=== PATIENT | male | born 1990 | race Caucasian/White ===

== ENCOUNTER 2018-10-16 15:19 | Emergency (ER) | payer MEDICAID ==
[2018-10-16 15:38] VITALS: BP 115/68
--- NOTE | 2018-10-16 16:04 | UC ---
Head Injury HPI - HPI Summary HPI Summary: Pt of " something not right" with his vision in his left eye after slipping on ice on 10/13/18. Pt fell from standing height, broke fall with forearms as he hit the ground. Pt denies LOC denies fall secondary to drug or alcohol use. Pt denies HOLT. Has c/o abrasion to bridge of nose area and redness above right eye and small abrasion to left elbow. Pt denies loss of central vision or flashes of light. - History Of Current Complaint Chief Complaint: UCEye Stated Complaint: LEFT EYE COMP Time Seen by Provider: 10/16/18 15:48 Hx Obtained From: Patient Onset/Duration: Sudden Onset, Lasting Days, Still Present Severity Currently: Mild Severity Initially: Mild Pain Intensity: 0 Aggravating Factor(s): Nothing Alleviating Factor(s): Nothing Associated Signs And Symptoms: Positive: Negative - Risk Factors SDH Risk Factor: Male - Allergies/Home Medications Allergies/Adverse Reactions: Allergies Allergy/AdvReac Type Severity Reaction Status Date / Time No Known Allergies Allergy Verified 10/16/18 15:38 Home Medications: Home Medications Buprenorp/Nalox 8-2 MG SL TAB [Suboxone 8-2 mg SL TAB*] 1 tab.sl SL DAILY [History Confirmed 10/16/18] Gabapentin TAB(NF) [Neurontin 600 mg TAB(NF)] 600 mg PO TID 10/16/18 [History Confirmed 10/16/18] PMH/Surg Hx/FS Hx/Imm Hx Previously Healthy: Yes - Surgical History Surgical History: None - Family History Known Family History: Positive: Cardiac Disease - Social History Occupation: Works From/At Home Lives: With Family Alcohol Use: None Substance Use Type: None Substance Use Comment - Amount & Last Used: IV heroin - last year Smoking Status (MU): Heavy Every Day Tobacco Smoker Have You Smoked in the Last Year: Yes Review of Systems All Other Systems Reviewed And Are Negative: Yes Constitutional: Positive: Negative Skin: Positive: Negative Eyes: Positive: Blurred Vision - left eye ENT: Positive: Negative Respiratory: Positive: Negative Cardiovascular: Positive: Negative Gastrointestinal: Positive: Negative Genitourinary: Positive: Negative Motor: Positive: Negative Neurovascular: Positive: Negative Musculoskeletal: Positive: Negative Neurological: Positive: Negative Psychological: Positive: Negative Is Patient Immunocompromised?: No Physical Exam Triage Information Reviewed: Yes Appearance: Well-Appearing Vital Signs: Initial Vital Signs Temp 97.1 F 10/16/18 15:32 Pulse 80 10/16/18 15:32 Resp 20 10/16/18 15:32 BP 115/68 10/16/18 15:32 Pulse Ox 99 10/16/18 15:32 Vital Signs Reviewed: Yes Eye Exam: Normal Eyes: Positive: Other: - visual acuity test on nurses triage note. ENT Exam: Normal ENT: Positive: Normal ENT inspection Dental Exam: Normal Neck exam: Normal Respiratory Exam: Normal Cardiovascular Exam: Normal Musculoskeletal Exam: Normal Neurological Exam: Normal Psychological Exam: Normal Skin Exam: Other - abrasion to bridge of nose Head Injury Course/Dx - Differential Dx/Diagnosis Differential Diagnosis/HQI/PQRI: Concussion Without LOC Provider Diagnosis: Blurry vision, left eye, Abrasion head, Abrasion of left elbow Discharge - Sign-Out/Discharge Documenting (check all that apply): Patient Departure All imaging exams completed and their final reports reviewed: No Studies - Discharge Plan Condition: Stable Disposition: HOME Patient Education Materials: Head Injury (ED), Blurred Vision (ED) Referrals: Priya Lemus NP [Primary Care Provider] - If Needed Additional Instructions: Please follow up with your eye care provider as soon as possible. - Billing Disposition and Condition Condition: STABLE Disposition: Home
== END 2018-10-16 16:14 | disposition home or self-care (01) ==
LOC: UCCORT 15:19
DX: S00.31XA Abrasion of nose, initial encounter (principal); S50.312A Abrasion of left elbow, initial encounter; H53.8 Other visual disturbances; F17.290 Nicotine dependence, other tobacco product, uncomplicated; W00.0XXA Fall on same level due to ice and snow, initial encounter; Y92.9 Unspecified place or not applicable
CPT/HCPCS: 99201; G0463

== ENCOUNTER 2019-05-06 19:32 | Emergency (ER) | payer SELFPAY ==
--- NOTE | 2019-05-06 20:05 | UC ---
Abdominal Pain Male HPI - HPI Summary HPI Summary: Per boom operator: 'LEFT LOWER ABDOMINAL PAIN SINCE THIS AM, HAS BECOME WORSE, AND IS SHARP, COMES WAVES. DENIES TESTICULAR PAIN. LAST BM THIS MORNING- WNL. NAUSEA, CLAMMY, NO VOMITING. " -here w/ GF Patsy - ketan took a cab here. -h/o IV drug use, last used ~ 2 mo ago. takes suboxone + fevers/chills. -LLQ pain sharp, lasts for several secs, max 7/10 pain. comes frequently -last BM this AM. no blood/melena. -no personal hx or Fhx diverticulitis/kidney stones -denies dysuria/hematuria. -takes suboxone. had neg hep C/hiv test several months ago but has used IV drugs since then -Patsy thinks he looks pale and sick. he is anxious about this. -no testicular pain - History of Current Complaint Chief Complaint: UCAbdominalPain Stated Complaint: L ABD PAIN Time Seen by Provider: 05/06/19 19:47 Pain Intensity: 7 - Allergies/Home Medications Allergies/Adverse Reactions: Allergies Allergy/AdvReac Type Severity Reaction Status Date / Time No Known Allergies Allergy Verified 05/06/19 19:35 Home Medications: Home Medications buPROPion TAB* [Wellbutrin TAB*] 300 mg PO DAILY 05/06/19 [History Confirmed ] PMH/Surg Hx/FS Hx/Imm Hx Previously Healthy: Yes Endocrine History: Other - IV drug use, opiate addiction. currently on suboxone. - Surgical History Surgical History: Yes Surgery Procedure, Year, and Place: TONSILLECTOMY - Family History Known Family History: Positive: Cardiac Disease - Social History Alcohol Use: None Substance Use Type: None Substance Use Comment - Amount & Last Used: IV heroin - last year Smoking Status (MU): Heavy Every Day Tobacco Smoker Amount Used/How Often: 1/2 PPD Have You Smoked in the Last Year: Yes Review of Systems All Other Systems Reviewed And Are Negative: Yes Constitutional: Positive: Fever, Chills Skin: Positive: Other - appears pale. Eyes: Positive: Negative ENT: Positive: Negative Respiratory: Positive: Negative Cardiovascular: Positive: Negative Gastrointestinal: Positive: Abdominal Pain, Nausea. Negative: Vomiting, Diarrhea Genitourinary: Positive: Negative. Negative: Dysuria, Hematuria, Frequency Motor: Positive: Negative Neurovascular: Positive: Negative Musculoskeletal: Positive: Negative Neurological: Positive: Negative Psychological: Positive: Negative Is Patient Immunocompromised?: No Physical Exam Triage Information Reviewed: Yes Appearance: Ill-Appearing - pale, anxious, holding abdomen. sitting w/ hips flexed b/c more comfortable. Vital Signs: Initial Vital Signs Temp 98.8 F 05/06/19 19:37 Pulse 93 05/06/19 19:37 Resp 20 05/06/19 19:37 BP 138/102 05/06/19 19:37 Pulse Ox 100 05/06/19 19:37 Vital Signs Reviewed: Yes Eye Exam: Normal Eyes: Positive: Conjunctiva Clear ENT Exam: Normal ENT: Positive: Pharynx normal Neck exam: Normal Neck: Positive: Supple, Nontender, No Lymphadenopathy Respiratory Exam: Normal Respiratory: Positive: Chest non-tender, Lungs clear, Normal breath sounds, No respiratory distress, No accessory muscle use. Negative: Crackles, Rhonchi, Stridor, Wheezing Cardiovascular Exam: Normal Cardiovascular: Positive: RRR, No Murmur Abdomen Description: Positive: No Organomegaly, Other: - + LLQ tenderness pinpoint w/ positive peritoneal signs. Increased pain upon coughing. + BS. no masses.. Negative: CVA Tenderness (R), CVA Tenderness (L), Distended, Guarding , Hepatomegaly, Pulsatile Mass, Splenomegaly Bowel Sounds: Positive: Present Musculoskeletal Exam: Normal Neurological Exam: Normal Psychological Exam: Normal Skin Exam: Normal Abd Pain Male Course/Dx - Course Course Of Treatment: LLQ abd pain w/ mild peritoneal signs - DDx includes divertcilitis/abscess (h/o IV drug use, renal colic -they agree to trx to closest ER via ambulance -IV placed -s/w Danae Cochran at 20:15 - Differential Dx/Clinical Impression Differential Diagnosis/HQI/PQRI: Diverticulitis, Epididymitis, Renal Colic Provider Diagnosis: LLQ abdominal pain Discharge ED - Sign-Out/Discharge Documenting (check all that apply): Patient Departure All imaging exams completed and their final reports reviewed: No Studies - Discharge Plan Condition: Fair Disposition: TRANS HIGHER LVL OF CARE FAC Referrals: Priya Lemus, MARTA [Primary Care Provider] - - Billing Disposition and Condition Condition: FAIR Disposition: Trans Higher Lvl of Care Fac
[2019-05-06 20:24] VITALS: BP 151/81
== END 2019-05-06 20:15 | disposition short-term general hospital (02) ==
LOC: UCCORT 19:32
DX: R10.32 Left lower quadrant pain (principal); F17.210 Nicotine dependence, cigarettes, uncomplicated
CPT/HCPCS: 99213; G0463